=== PATIENT | male | born 1980 | race Caucasian/White ===

== ENCOUNTER 2022-08-26 07:55 | Emergency (ER) | payer BC, SELFPAY ==
[2022-08-26 07:56] VITALS: BP 128/100; PULSE 77; RESP 14; TEMP 36.6; O2SAT 98; BMI 33.6
--- NOTE | 2022-08-26 08:16 | EKG12_ITS ---
Test Reason : PALP Blood Pressure : / mmHG Vent. Rate : 065 BPM Atrial Rate : 065 BPM P-R Int : 148 ms QRS Dur : 088 ms QT Int : 382 ms P-R-T Axes : 052 043 022 degrees QTc Int : 397 ms Normal sinus rhythm Normal ECG Confirmed by YA STANLEY MD ([id number]), health editor TONI FOSTER ([id number]) on 08/26/2022 2:29:17 PM Referred By: BB Confirmed By:YA STANLEY MD
--- NOTE | 2022-08-26 08:17 | EDS_ITS ---
HPI History of Present Illness Chief Complaint: Palpitations Informant: patient and spouse/S.O. Narrative Narrative: Patient presents this morning with 1 or 2 hours of episodes of atrial fibrillation that are different than they usually are. He has history of paroxysmal A-fib, he had an ablation 5 years ago or so, but in the last year or 2 or more he has been having daily brief episodes of A-fib that usually he tolerates, last 10 or 15 minutes or so, and can go away. He sees an EP product marketer in [place] that has given him a prescription for flecainide to be used as a pill in pocket if he has extended issues. 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 He felt uncomfortable throughout his chest, but unsure if it was pressure/heaviness/discomfort or if it was just the racing/skipping heartbeat. He has had multiple episodes this morning. He feels tired in between them, however he is at the end of the shift production associate. He had an energy drink at the beginning of his shift which is not unusual for him, no excessive caffeine or other stimulants compared to normal but states that he has been having an increase in his chronic low back pain, took a Percocet 6 hours ago for that, and states that he is under a lot of stress lately. No history of coronary artery disease. [facility] Medical History A-fib Home Medications oxycodone-acetaminophen 7.5 mg-325 mg tablet 1 tab PO BID BACK PAIN 08/26/22 [History Last Taken Unknown] Allergy/AdvReac Type Severity Reaction Status Date / Time No Known Allergies Allergy Verified 08/26/22 08:13 Surgical History S/P ablation of atrial fibrillation Social History Smoking Status: Former smoker ROS ROS ED Constitutional Constitutional ED: Reports fatigue and sweats; Denies chills or fever(s) Eyes Eyes: Denies change in vision or diplopia ENT ENT ED: Denies rhinorrhea or sore throat Cardiovascular Cardiovascular: Reports diaphoresis, lightheadedness, palpitations and racing heartbeat; Denies chest pain or syncope Respiratory/Chest Respiratory/Chest: Reports other Details: Dyspnea when in A-fib, resolved tog ether ; Denies cough Gastrointestinal Gastrointestinal: Denies abdominal pain, diarrhea, nausea or vomiting Genitourinary Genitourinary ED: Denies dysuria or hematuria Musculoskeletal Musculoskeletal: Denies back pain or neck pain Integumentary Denies abscess or rash Neurologic Neurologic: Denies headache(s), paresthesias or weakness Psychiatric Psychiatric: Denies anxiety or suicidal thoughts EXAM Physical Exam Const Vital Signs: 08/26/22 07:56 08/26/22 08:19 08/26/22 11:22 Temperature 98 F Temperature Source Temporal Pulse Rate 77 60 Respiratory Rate 14 Blood Pressure 128/100 H 121/92 H Blood Pressure Mean 109 101 Pulse Ox 98 Oxygen Delivery Method Room Air Room Air Positive well nourished and well developed General Appearance ED: well developed and NAD HEENT Reports moist mucous membranes normocephalic and atraumatic Eyes PERRL and EOMs intact bilaterally Neck full ROM, no lymphadenopathy, supple and no JVD Resp normal respiratory effort and clear to auscultation bilaterally Cardio regular rate, regular rhythm and no murmurs Rate: Negative for bradycardia or tachycardic GI non-tender and non-distended Auscultation: normoactive bowel sounds Palpation: soft Back/Spine no CVA tenderness General Back: other FROM Extremity normal to inspection General Extremety ED: Negative for edema, pulses abnormal or tenderness General Extremity: Negative for edema or pulses abnormal Neuro oriented x3, CN's II-XII intact bilaterally and no sensory deficits noted Sensorium / Orientation: awake and alert Motor Exam: strength 5/5 throughout Skin no rashes or lesions noted and no wounds MDM MDM MDM Narrative Medical decision making narrative: Differential here includes simply paroxysmal A-fib but higher rate and/or duration than usual causing his symptoms, and also acute coronary syndrome. I think the latter is less likely because his EKG right now shows no repolarization abnormalities. Regardless, I think the safest plan would be to monitor him here and perform two troponin measurements, and I think it is reasonable to give him a dose of flecainide while he is being observed, he is amenable to that. Patient was observed for 2 or 3 hours, he had no symptoms or recurrences of atrial fibrillation, we did 2 measurements of his troponin and they are both within normal limits and his labs are otherwise reviewed. Patient is reassured given all of this, I am comfortable with him being discharged home as is he. Lab Data Attestation: I reviewed the patient's lab results. Labs: Laboratory Results - last 24 hr 08/26/22 08/26/22 08:07 10:25 WBC 6.7 RBC 5.02 Hgb 14.6 Hct 44.8 MCV 89.2 MCH 29.1 MCHC 32.6 RDW Std Deviation 41.2 RDW Coeff of Trae 12.6 Plt Count 261 MPV 9.9 Immature Gran % (Auto) 0.100 Neut % (Auto) 60.5 Lymph % (Auto) 26.2 [place] % (Auto) 10.9 H Eos % (Auto) 1.6 Baso % (Auto) 0.7 Absolute Neuts (auto) 4.1 Absolute Lymphs (auto) 1.76 Nucleated RBC % 0 Sodium 141 Potassium 3.9 Chloride 108 H Carbon Dioxide 29.0 Anion Gap 4 L BUN 27 H Creatinine 1.31 H Estim Creat Clear Calc 81.45 Est GFR (MDRD) Af Amer 77 Est GFR (MDRD) Non-Af 64 BUN/Creatinine Ratio 20.6 H Glucose 92 Calcium 8.9 Troponin I High Sens 4 6 Rhythm Strip Rhythm Strip: Sinus Rhythm Rate: 65 Ectopy: None EKG Initial EKG: Attestation: I personally reviewed and interpreted this EKG as follows: Interpretation: Sinus Rhythm and No Acute Injury Pattern Comments: Normal EKG Discharge Plan Triage Chief Complaint: Palpitations ED Provider: Ry Chao Dx/Rx/DC Orders Clinical Impression: PAF (paroxysmal atrial fibrillation) Instructions: AFib Dc Prescriptions: No Action oxycodone-acetaminophen 7.5-325 mg tablet 1 tab PO BID Patient Comments: TAKE 1 TABLET BY MOUTH 2 TIMES A DAY NEEDED FOR PAIN Primary Care Provider: Nolvia Hdz Referrals: Armando Sparks, [Non-Staff] - (and/or your EP product marketer as needed) Disposition Disposition: Home, Self Care
[2022-08-26 08:34] LABS: Absolute Lymphocyte Count 1.76 X10^3/uL (0.83-4.51); Absolute Neutrophil Count 4.1 X10^3/uL (2.0-7.7); Basophil# 0.05 X10^3/uL; Basophil% 0.7 % (0-1); Eosinophil# 0.11 X10^3/uL; Eosinophils% 1.6 % (0-5); Hematocrit 44.8 % (40-54); Hemoglobin 14.6 g/dL (13.0-16.5); Lymphocyte # 1.76 X10^3/ul (0.83-4.51); Lymphocyte % 26.2 % (19-41); Mean Corp Hgb Conc 32.6 g/dL (32-36); Mean Corpuscular Hgb 29.1 pg (27.0-32.0); Mean Corpuscular Volume 89.2 fL (80-94); Mean Platelet Vol. 9.9 fl (6.2-12.0); Monocyte# 0.73 X10^3/uL; Monocyte% 10.9 % (0-10); NRBC Flagged by Analyzer 0 % (0-5); Neutrophil # 4.05 X10^3/uL (2.7-7.7); Neutrophil % 60.5 % (47-70); Platelet Count 261 K/mm3 (150-450); RBC Distribution Width CV 12.6 % (11.6-14.6); RBC Distribution Width SD 41.2 fl (35.1-43.9); Red Blood Count 5.02 M/mm3 (4.6-6.2); White Blood Count 6.7 K/mm3 (4.4-11.0)
[2022-08-26] MEDS: Flecainide 100 MG Tablet PO (08:46)
[2022-08-26 08:58] LABS: Anion Gap 4 (5-15); BUN 27 mg/dL (7-18); BUN/Creat Ratio 20.6 RATIO (10-20); Calcium,Total 8.9 mg/dL (8.5-10.1); Chloride 108 mmol/L (98-107); Creatinine, Serum 1.31 mg/dL (0.70-1.30); EST Glomerular Filtration Rate 64 mL/min (>60); Est Glom Filt Rate - Afr Amer 77 mL/min (>60); Estimated Creatinine Clearance 81.45 ml/min; Glucose 92 mg/dL (74-106); Potassium 3.9 mmol/L (3.5-5.1); Sodium Level 141 mmol/L (136-145); Troponin-I HS (w/2H Reflex) 4 pg/mL (3.0-78.0)
[2022-08-26 10:22] LABS: Reflex Troponin-HS? (from REC) Y
[2022-08-26 10:52] LABS: Troponin-I HS 6 pg/mL (3.0-78.0)
[2022-08-26 11:22] VITALS: BP 121/92; PULSE 60
== END 2022-08-26 11:48 | disposition home or self-care (01) ==
PROVIDERS: Emergency Provider Emergency Medicine; Visit Provider Emergency Medicine
DX: I48.0 Paroxysmal atrial fibrillation (principal); Z87.891 Personal history of nicotine dependence
CPT/HCPCS: 80048; 84484; 85025; 93005; 99285; A4216